=== PATIENT | male | born 1945 | race Caucasian/White ===

== ENCOUNTER → 2023-07-03 | Outpatient (CLI) | payer OTHER, SELFPAY ==
--- NOTE | 2023-07-03 09:28 | ECHOCS_ITS ---
Reason For Study: Heart Disease Procedure This was a 2D Doppler, Color Flow transthoracic echocardiogram. The study was technically difficult. Contrast injection was performed. Exam performed in department. Left Ventricle Normal LV size. The estimated ejection fraction is 50-55 %. Unable to assess diastolic dysfunction. septal hypokinesis. Right Ventricle Normal RV size. ICD or pacer leads identified within the right ventricle. Normal systolic function. Atria Normal left atrium. Normal right atrium. ICD or pacer leads identified within the right atrium. No doppler evidence for ASD. Mitral Valve There is moderate mitral annular calcification. There is no mitral valve stenosis. No mitral valve insufficiency. Status post mitral valve repair. Tricuspid Valve There is no tricuspid stenosis. Trivial tricuspid valve insufficiency. Pulmonary artery systolic pressure is 30 mmHg. Aortic Valve Trisinus/trileaflet aortic valve. There is no aortic stenosis. Trivial aortic valve insufficiency. Pulmonic Valve There is no pulmonic valvular stenosis. No pulmonic valve insufficiency. Great Vessels Normal aortic root. Pericardium/Pleural No pericardial effusion. Medication 22 gauge I.V. with prn adaptor inserted into right arm. Diluted definity 2ml given slow IV push to enhance endocardial definition. MMode/2D Measurements & Calculations LVIDd: 5.9 cm IVSd: 1.0 cm Ao root diam: 3.9 cm LVIDs: 4.7 cm LVPWd: 1.1 cm LA dimension: 4.9 cm RVDd: 4.0 cm FS: 21.5 % LAV(MOD-bp): 68.3 ml LVAd ap4: 44.0 cm2 SV(MOD-sp4): 79.1 ml LAV(MOD-bp) Indexed: 31.1 ml/m2 LVLd ap4: 9.8 cm LAV(MOD-sp2): 63.3 ml EDV(MOD-sp4): 166.9 ml LAV(MOD-sp4): 71.6 ml EDV(sp4-el): 167.7 ml LVAs ap4: 29.4 cm2 LVLs ap4: 8.6 cm ESV(MOD-sp4): 87.8 ml ESV(sp4-el): 85.5 ml EF(MOD-sp4): 47.4 % EF(sp4-el): 49.0 % SV(sp4-el): 82.2 ml LA A4 area: 22.3 cm2 RA A4 area: 17.9 cm2 TAPSE: 1.3 cm Time Measurements MV dec time: 0.41 sec Doppler Measurements & Calculations MV E max jaciel: 77.6 cm/sec Lat Peak E' Jaciel: 8.5 cm/sec Med Peak E' Jaciel: 4.1 cm/sec MV A max jaciel: 161.6 cm/sec E/E' lat: 9.2 E/E' med: 18.8 MV E/A: 0.48 MV V2 max: 178.5 cm/sec MV P1/2t max jaciel: 94.9 cm/sec Ao V2 max: 121.7 cm/sec MV max P.8 mmHg MV P1/2t: 133.6 msec Ao max P.9 mmHg MV V2 mean: 87.1 cm/sec Ao V2 mean: 84.7 cm/sec MV mean P.8 mmHg MV dec slope: 208.0 cm/sec2 Ao mean P.2 mmHg MV V2 VTI: 41.5 cm MVA(P1/2t): 1.6 cm2 Ao V2 VTI: 28.7 cm AV (velocity ratio): 0.74 LV V1 max: 94.7 cm/sec PA V2 max: 91.5 cm/sec TR max jaciel: 243.8 cm/sec LV V1 max P.6 mmHg TR max P.8 mmHg LV V1 mean P.1 mmHg LV V1 mean: 66.9 cm/sec LV V1 VTI: 21.2 cm ECHO/Echo Complete W/ Contrast Interpretation Summary The estimated ejection fraction is 50-55 %. Unable to assess diastolic dysfunction. Status post mitral valve repair. Trivial aortic valve insufficiency. Ordering Physician: Livan Harris Referring Physician: Livan Harris Performed By: Contreras Perry RCS
== END | disposition home or self-care (01) ==
PROVIDERS: Referring Provider Chiropractor; Visit Provider Chiropractor
DX: I51.9 Heart disease, unspecified (principal)
CPT/HCPCS: 93306; Q9957; A4216; C8929